=== PATIENT | female | born 2000 | race Two or more races ===

== ENCOUNTER 2023-04-01 15:23 | Observation (INO) | payer BC ==
[2023-04-01] MEDS ORDERED: PREN-96 PO (16:29)
== END 2023-04-01 16:30 | disposition home or self-care (01) ==
LOC: LDRP 15:23
PROVIDERS: ADMIT Obstetrics & Gynecology; ATTEND Obstetrics & Gynecology
DX: O26.893 Other specified pregnancy related conditions, third trimester (principal); R10.31 Right lower quadrant pain; R10.32 Left lower quadrant pain; R10.2 Pelvic and perineal pain; Z3A.35 35 weeks gestation of pregnancy
CPT/HCPCS: 59025; 81002; 94760; G0378

== ENCOUNTER 2023-04-22 22:50 | Inpatient (IN) | payer BC ==
[~2023-04-22] VITALS: Ht 33 cm; Wt 0.5 kg
[~2023-04-22 22:50] MED LIST: PREN-96 PO
[2023-04-22] MEDS ORDERED: PROMETHAZINE HCL 25 MG/ML 1ML IM PRN (23:45)
[2023-04-22] MEDS ORDERED: LIDOCAINE 2%HCL (LOCAL ANESTH.) INJ 20ML MDV IJ PRN (23:45)
[2023-04-22] MEDS ORDERED: NALBUPHINE HCL 10 MG/1ml INJECTION IV PRN (23:45)
[2023-04-22] MEDS ORDERED: PHISODERM TOP SOLN 240ML BTL TOP PRN (23:45)
[2023-04-22] MEDS ORDERED: LACTATED RINGER'S 1,000 ML IV SCH (23:45)
[2023-04-23] VITALS (8 sets, daily range): BP systolic 115–124; BP diastolic 62–72
[2023-04-23 00:04] LABS: Urine Bacteria FEW /hpf (None Seen); Urine Blood Negative /uL (Negative); Urine Specific Gravity 1.005 (1.001-1.035); Urine WBC 1 /hpf (0 - 5)
[2023-04-23 00:14] LABS: Basophils # (auto) 0 10 ^3/uL (0-0.2); Basophils % (auto) 0.2 % (0.0-2.0); Eosinophils # (auto) 0 10 ^3/uL (0-0.8); Eosinophils % (auto) 0.2 % (0.0-7.0); Hematocrit 33.8 % (36.0-46.0); Hemoglobin 11.4 g/dL (12.2-16.2); Lymphocytes # (auto) 1.7 10 ^3/uL (0.4-5.4); Lymphocytes % (auto) 14.7 % (10.0-50.0); Mean Corpuscular Hemoglobin 31.6 pg (28.0-32.0); Mean Corpuscular Hgb Conc. 33.7 g/dL (32.0-36.0); Mean Corpuscular Volume 93.8 fL (80.0-100.0); Monocytes # (auto) 0.6 10 ^3/uL (0-1.3); Monocytes % (auto) 5.3 % (0.0-12.0); Neutrophils # (auto) 9.3 10 ^3/uL (1.6-8.6); Neutrophils % (auto) 79.6 % (37.0-80.0); Red Cell Distribution Width 15.1 % (11.8-14.3); White Blood Cell 11.6 10^3/uL (4.4-10.8)
[2023-04-23 00:25] LABS: Bilirubin, Total 0.2 mg/dL (0.2-1.0)
[2023-04-23 00:29] LABS: BUN/Creatinine Ratio 17.9 (10.0-20.0); Potassium 4.5 mmol/L (3.5-5.1)
[2023-04-23 00:30] LABS: Albumin 2.4 g/dL (3.4-5.0); Calcium 9.2 mg/dL (8.5-10.1)
[2023-04-23 00:34] LABS: INR 0.93 (0.9-1.15); Partial Thromboplastin Time 25.4 SEC (24.5-34.5)
[2023-04-23 01:19] LABS: Alcohol, Urine < 3.0 mg/dL (0-10); Amphetamine Screen, Urine NEGATIVE (NEGATIVE); Barbiturate Scree,Urine NEGATIVE (NEGATIVE); Benzodiazephine Screen, Urine NEGATIVE (NEGATIVE); Cannabinoid Screen, Urine NEGATIVE (NEGATIVE); Cocaine Screen, Urine NEGATIVE (NEGATIVE); Opiate Scree,Urine NEGATIVE (NEGATIVE); Phencyclidine Screen, Urine NEGATIVE (NEGATIVE)
[2023-04-23] MEDS ORDERED: METHYLERGONOVINE MALEATE 0.2 MG/ML AMP IM PRN (06:45)
[2023-04-23] MEDS ORDERED: LACT. RINGERS/OXYTOCIN 20UNITS 500 ML IV ONE ×2 (06:45→07:15)
[2023-04-23] MEDS ORDERED: miSOPROStol 100 mcg TAB PR PRN (07:00)
[2023-04-23] MEDS ORDERED: CARBOPROST TROMETHAMINE 250 MCG/1ML VIAL IM PRN (07:00)
[2023-04-23] MEDS ORDERED: miSOPROStol 100 mcg TAB SL PRN (07:00)
[2023-04-23] MEDS: WITCH HAZEL-GLYCERIN PAD TOP PRN ×2 (07:17→13:29)
[2023-04-23] MEDS: DERMOPLAST 60ML BOTTLE TOP PRN ×2 (07:17→13:29)
[2023-04-23] MEDS ORDERED: ACETAMINOPHEN 325 MG TAB PO PRN (08:30)
[2023-04-23] MEDS ORDERED: ONDANSETRON ODT 4 MG TAB PO PRN (08:30)
[2023-04-23] MEDS: IBUPROFEN 600 MG TAB PO PRN ×2 (11:10→20:40)
[2023-04-23] MEDS ORDERED: DOCUSATE SOD 100 MG CAP PO SCH (22:00)
[2023-04-24 03:30] VITALS: BP 132/79
[2023-04-24] MEDS: IBUPROFEN 600 MG TAB PO PRN ×2 (05:08→14:06)
[2023-04-24 07:00] VITALS: BP 105/75
[2023-04-24 11:00] VITALS: BP 120/74
[2023-04-26 04:06] LABS: RPR Non Reactive (Non Reactive)
== END 2023-04-24 13:14 | disposition home or self-care (01) | DRG 807 ==
LOC: LDRP 22:50 → OBSVTOIN 23:41 → LDRP 04-23 01:30
PROVIDERS: ADMIT Obstetrics & Gynecology; ATTEND Obstetrics & Gynecology
PROC: 10E0XZZ Delivery of Products of Conception, External Approach (ICD-10-PCS; principal; 2023-04-23)
PROC: 0HQ9XZZ Repair Perineum Skin, External Approach (ICD-10-PCS; 2023-04-23)
DX: O70.0 First degree perineal laceration during delivery (principal); Z37.0 Single live birth; Z3A.38 38 weeks gestation of pregnancy
CPT/HCPCS: 36415; 59025; 59409; 80053; 80307; 81001; 81002; 84112; 85025; 85610; 85730; 86592; 86850; 86900; 86901; 94760; 96360; 96361; 96365; 96366; 96372; 96374; G0378; J2590